=== PATIENT | female | born 1975 | race Caucasian/White ===

== ENCOUNTER 2016-11-17 19:44 | Emergency (ER) | payer OTHER ==
[2016-11-17 19:58] VITALS: BP 128/79
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
[2016-11-17] MEDS ORDERED: HYDROcodone/ACETAMIN 5-325 MG* 1 TAB PO ONE (20:47)
== END 2016-11-17 20:56 | disposition home or self-care (01) ==
LOC: UCCORT 19:44
DX: S52.502A Unspecified fracture of the lower end of left radius, initial encounter for closed fracture (principal); W22.09XA Striking against other stationary object, initial encounter
CPT/HCPCS: 99203; G0463